=== PATIENT | male | born 2000 | race Caucasian/White ===

== ENCOUNTER → 2023-08-28 09:15 | Outpatient (REF) | payer BC, SELFPAY | LOC: WOUND 09:15 | PROVIDERS: ATTENDING PHYSICIAN Surgery; REFERRING PHYSICIAN Student in an Organized Health Care Education/Training Program | DX: S91.001A Unspecified open wound, right ankle, initial encounter (principal); V86.99XA Unspecified occupant of other special all-terrain or other off-road motor vehicle injured in nontraffic accident, initial encounter | CPT/HCPCS: 11042 ==

== ENCOUNTER → 2023-09-04 09:29 | Outpatient (REF) | payer BC, SELFPAY | LOC: WOUND 09:29 | PROVIDERS: ATTENDING PHYSICIAN Surgery; REFERRING PHYSICIAN Student in an Organized Health Care Education/Training Program | DX: S91.001A Unspecified open wound, right ankle, initial encounter (principal); V86.99XA Unspecified occupant of other special all-terrain or other off-road motor vehicle injured in nontraffic accident, initial encounter | CPT/HCPCS: 97597 ==

== ENCOUNTER → 2023-09-11 09:11 | Outpatient (REF) | payer BC, SELFPAY | LOC: WOUND 09:11 | PROVIDERS: ATTENDING PHYSICIAN Surgery; REFERRING PHYSICIAN Student in an Organized Health Care Education/Training Program | DX: S91.001A Unspecified open wound, right ankle, initial encounter (principal); X58.XXXA Exposure to other specified factors, initial encounter | CPT/HCPCS: 97597 ==

== ENCOUNTER → 2023-09-18 09:38 | Outpatient (REF) | payer BC, SELFPAY | LOC: WOUND 09:38 | PROVIDERS: ATTENDING PHYSICIAN Surgery; FAMILY PHYSICIAN Student in an Organized Health Care Education/Training Program | DX: S91.001A Unspecified open wound, right ankle, initial encounter (principal); V89.0XXA Person injured in unspecified motor-vehicle accident, nontraffic, initial encounter | CPT/HCPCS: 97597 ==

== ENCOUNTER → 2023-09-25 09:55 | Outpatient (REF) | payer BC, SELFPAY | LOC: WOUND 09:55 | PROVIDERS: ATTENDING PHYSICIAN Surgery; FAMILY PHYSICIAN Student in an Organized Health Care Education/Training Program | DX: S91.001A Unspecified open wound, right ankle, initial encounter (principal); X58.XXXA Exposure to other specified factors, initial encounter | CPT/HCPCS: 97597 ==

== ENCOUNTER 2024-11-08 22:38 | Inpatient (IN) | payer BC, SELFPAY ==
[2024-11-08] VITALS (8 sets, daily range): BP systolic 120–134; BP diastolic 58–86; BMI 31.2
[2024-11-08 16:59] LABS: Urine Albumin 2+ (Neg - Trace); Urine Bilirubin 3+ (Negative); Urine Character Clear (Clear); Urine Color Yellow; Urine Glucose Negative (Negative); Urine Ketone 1+ (Negative); Urine Leukocyte 1+ (Negative); Urine Nitrite Negative (Negative); Urine Occult Blood 2+ (Negative); Urine Specific Gravity 1.015 (<1.030); Urine Urobilinogen 2+ (Neg - 1+)
[2024-11-08 17:11] LABS: Albumin 4.5 g/dl (3.5-5.0); Alkaline Phosphatase 158 U/L (38-126); Blood Urea Nitrogen 9 mg/dl (9-20); Calcium 9.6 mg/dl (8.4-10.2); Carbon Dioxide 28 mmol/L (22-30); Chloride 103 mmol/L (98-107); Glucose 99 mg/dl (70-99); Potassium 4.9 mmol/L (3.5-5.1); Sodium 141 mmol/L (135-145); Total Bilirubin 8.9 mg/dl (0.2-1.3); Total Protein 7.7 g/dl (6.3-8.2); eGFR > 60.00
[2024-11-08 17:26] LABS: Urine Bacteria Moderate (Negative); Urine Mucus Moderate; Urine Red Blood Cell 0-2 /HPF (0-2)
[2024-11-08 17:28] LABS: AST (SGOT) 5658 U/L (17-59); Hematocrit 49.9 % (39.0-52.0); Hemoglobin 17.4 g/dL (13.0-18.0); Mean Corp Hgb Conc. 34.9 g/dL (33.0-37.0); Mean Corpuscular Hgb 30.6 pg (27.0-31.0); Mean Corpuscular Volume 87.7 fL (80.0-94.0); Mean Platelet Volume 10.1 fL (7.4-10.4); Platelet Count 181 10^3/uL (130-400); Red Blood Cell Count 5.69 10^6/uL (4.70-6.10); Red Cell Dist. Width 13.2 % (11.5-14.5)
[2024-11-08 17:29] LABS: ALT (SGPT) 6275 U/L (0-50)
[2024-11-08 17:49] LABS: Lipase 31 U/L (23-300)
[2024-11-08] MEDS: NSS 1000 IV ×2 (17:56→23:32)
[2024-11-08 18:18] LABS: INR 1.64; PT 19.6 Sec (11.4-14.6)
--- NOTE | 2024-11-08 18:27 | ED.GENMED ---
History of Present Illness
General
Chief Complaint: Abdominal Pain
Source: patient
Exam Limitations: none
Time Seen by Provider: 11/08/24 17:38
History of Present Illness
History of Present Illness:
24yoM with no significant past medical history for evaluation of abdominal pain. Patient initially started feeling unwell 3 days ago. He reports pressure, fatigue, malaise, and chills. He has been feeling feverish but has not been checking his
temperature. He developed pain in his epigastrium and right upper quadrant 2 days ago. Pain has been gradually worsening and is worse with movement and eating. His urine has appeared very dark. He was seen at urgent care prior to arrival and
urinalysis showed a large amount of bilirubin and he was sent to the ED for evaluation. No previous abdominal surgeries. He denies any drug use and drinks alcohol socially. No supplement use. He had 3 to 4 tablets of Tylenol 2 days ago but
otherwise denies taking anything [id number]. Of note, he traveled to [place] last month.
Past History
Past History
ED Past Medical History: None
ED Past Surgical History: None
Phy Exam
General Physical Exam
General Presentation: no apparent distress
General Skin: warm and dry
General Habitus: normal
General Mental: alert
ENT Exam
ENT Exam: normocephalic
Eye Exam
Eye Exam: other (Scleral icterus)
Cardiovascular Exam
Cardiovascular Exam: regular rate/rhythm
Pulmonary Exam
Pulmonary Exam: lungs clear, no respiratory distress, no rales, no crackles and no rhonchi
Gastrointestinal Exam
Gastrointestinal Exam: soft, non distended and other (+RUQ and epigastric tenderness. Abdomen soft, non-distended. No rebound or guarding.)
Neurological Exam
Neurological Exam: alert
Ronnie Coma Scale
Eye Opening: Spontaneous
Verbal Response: Oriented
Motor Response: Obeys Commands
GCS Total Score: 15
Skin Exam
Skin Exam: normal color and warm/dry
Psychiatric Exam
Psychiatric Exam: normal mood/affect
Course
Orders/Labs/Results
Orders:
Orders
11/08/24 16:49
Acetaminophen Urgent
Comment: ADD ON
Complete Blood Count/With Diff Urgent
Comprehensive Metabolic Panel Urgent
Creatine Phosphokinase Urgent
Lipase Urgent
Manual Differential Urgent
Urinalysis Reflex To Culture Urgent
Date Specimen was Collected: 11/08/24
Time Specimen was Collected: 16:44
Urine Drug Abuse Screen Urgent
Date Specimen was Collected: 11/08/24
Time Specimen was Collected: 16:44
Urine Microscopic Reflex Cult Urgent
Urine Culture Urgent
SUNIL Source: U
Specimen Description:
Date Specimen was Collected: 11/08/24
Time Specimen was Collected: 16:44
11/08/24 17:48
0.9% Sodium Chloride 1000 ml [Nss] 1,000 ml IV BOLUS
11/08/24 17:50
US Abdomen Complete/Upper Urgent
Comment:
Reason For Exam: RUQ pain, transaminitis
11/08/24 17:53
Hepatitis A IgM Antibody Urgent
Hepatitis B Core Ab, IgM Urgent
Hepatitis B Surface Antibody Urgent
Hepatitis B Surface Antigen Urgent
Hepatitis C Antibody Urgent
Prothrombin Time Urgent
11/08/24 19:08
Add On- LAB Urgent
Tests Added?: CK
CT Abd/pelvis W Iv Cont Stat
Comment:
Reason For Exam: RUQ pain, transaminitis
11/08/24 19:55
Add On- LAB Urgent
Tests Added?: acetaminophen
11/08/24 19:58
Add On- LAB Urgent
Tests Added?: Urine drug screen
11/08/24 20:24
Piperacillin/Tazo 4.5 Gram [Zosyn] 4.5 gram in 100 ml IV NOW
11/08/24 22:01
Admit/Transfer Patient As Directed
Co-Sign Provider:
Level of Care: Inpatient admission
Assign to:: Medical/Surgical
Physician / Group: cameron josue
Diagnosis: Acute Hepatitis A infection w/ transaminitis
Reason for Hospitalization: Acute Hepatitis A infection w/ transaminitis
Expected length of stay greater than two midnights?: Yes
ELOS- Estimated Length of Stay in days: 4
I certify the patient meets the requirements for IP care: Yes
11/08/24 22:05
Code Status As Directed
Resuscitation Status: Full Code
11/08/24 22:07
PRN Pain Medication Management As Directed
May give lesser potent ordered pain med per pt: Yes
preference::
Protocol:: Medication orders for pain may be administered in a
manner that supports deferring to patient preference
when the pt is:
- Requesting an ordered lesser potent pain medication.
Least to most potent pain medications are defined
as: acetaminophen < NSAID < tramadol < opioids
(morphine, oxycodone, hydromorphone).
- Requesting a lesser dose of the same medication IF
ORDERED.
- Requesting a less intrusive route of administration
if both routes are prescribed by the provider (PO <
IV).
11/08/24 22:08
GASTROINTESTINAL CONSULT Routine
Consulting Provider: Lupe Mendez
Was physician already notified: Yes
Reason for consult: acute hep A infection
Abnormal Lab Results
11/08/24 11/08/24
16:49 17:53
Lymphocytes (Manual) 19 L %
(20-51)
Monocytes (Manual) 11 H %
(2-9)
PT 19.6 H Sec
(11.4-14.6)
Total Bilirubin 8.9 H mg/dl
(0.2-1.3)
AST 5658 H* U/L
(17-59)
ALT 6275 H* U/L
(0-50)
Alkaline Phosphatase 158 H U/L
(38-126)
Creatine Kinase 179 H U/L
(55-170)
Urine Ketones 1+ A
(Negative)
Ur Occult Blood Reflex 2+ A
(Negative)
Urine Bilirubin 3+ A
(Negative)
Urine Urobilinogen 2+ A
(Neg - 1+)
Leukocyte Esterase Rfl 1+ A
(Negative)
Urine Bacteria (Reflex) Moderate A
(Negative)
Urine Albumin (Reflex) 2+ A
(Neg - Trace)
Acetaminophen < 10 L ug/ml
(10-30)
U Marijuana (THC) Screen Positive H
(Negative)
11/08/24 16:49
11/08/24 16:49
Vital Signs
Initial and Last Documented VS:
Initial Vital Signs
Temp Pulse Resp BP Pulse Ox
97.7 F 71 20 131/86 100
11/08/24 16:37 11/08/24 16:37 11/08/24 16:37 11/08/24 16:37 11/08/24 16:37
Last Documented Vital Signs
Temp Pulse Resp BP Pulse Ox
97.7 F 59 18 133/65 97
11/08/24 16:37 11/08/24 20:08 11/08/24 20:08 11/08/24 20:00 11/08/24 20:30
MDM/Problems Addressed
Differential Diagnosis Includes:
24yoM here with malaise, feeling feverish, RUQ pain, and dark urine x 2-3 days. [place] here by urgent care for bilirubin seen on UA. VSS. He appears fatigued but is non-toxic. Scleral icterus noted. +Abdominal tenderness without signs of peritonitis.
Differential diagnosis includes but is not limited to: cholecystitis, pancreatitis, viral illness, appendicitis, dehydration
Initial ED plan: Abdominal labs obtained in triage. LFTs are markedly elevated with AST 5600, ALT 6200, and total bilirubin of 8.9. White count and lipase normal. Will check INR, hepatitis panel, and RUQ ultrasound. IV fluid bolus.
*Critical Care Note
Total Time (30-74mins, 75-104mins- exclusive of procedures): Not Applicable
Update Note
Update Note:
INR 1.6. Hepatitis A IgM antibody is reactive. RUQ ultrasound shows gallbladder debris without cholecystitis or cholelithiasis. CT added which reveals 'Abnormal appearance of the gallbladder with appearance of intraluminal/sloughed membranes.
Findings are suspicious for gangrenous cholecystitis in the appropriate clinical context.' I discussed case with general surgery who states this is likely reactive due to liver inflammation. IV Zosyn ordered for completeness. I also discussed with
gastroenterology who recommends supportive care, checking Tylenol level/UDS, and repeat labs in the morning. Patient admitted for further management.
ED Attending Note
-
Portions of this chart may have been created with voice recognition software.� Occasional wrong word or��sound alike� substitutions may have occurred due to the inherent limitations of voice recognition software.
Discharge Plan
Departure
Patient Disposition: Admit
Date of Disposition: 11/08/24
Time of Disposition: 20:08
Presentation/result/management discussed w/ accepting MD/DO: Hospitalist
Discharge Problem:
Acute hepatitis A virus infection
Prescriptions:
No Action
fluticasone propionate [Flonase] 50 mcg/actuation [place],Suspension
2 spray INTRANASAL DAILY
Referrals:
NONE,* [Family Provider] -
Interventions
Interventions:
*Risk Screen - Suicide Last Done: 11/08/24 16:37
*General Assessment Last Done: 11/08/24 17:40
*Neglect/Abuse Screening Last Done: 11/08/24 17:40
*ED- Fall Risk Assessment Last Done: 11/08/24 17:40
*ED COVID-19 Vaccine History Last Done: 11/08/24 17:40
LT-Fpcgfl-Saosdnsvkw Assessment Last Done: 11/08/24 19:19
Discharge Date and Time
Print Language: MALTESE
[2024-11-08 18:54] LABS: Hepatitis B Surface Antigen Negative (Negative)
[2024-11-08 18:59] LABS: Hepatitis A IgM Antibody Reactive (Negative); Hepatitis B Core Ab, IgM Negative (Negative)
[2024-11-08 19:02] LABS: Absolute Neutrophils -Man Diff 3.5 10^3/uL (1.4-6.5); Atypical Lymphocytes 11 %; Band Neutrophils 0 % (0-3); Lymphocytes 19 % (20-51); Monocytes 11 % (2-9); Platelets Checked Yes; Segmented Neutrophils 59 % (42-75)
[2024-11-08 19:03] LABS: Normal RBC Morphology Yes; Total Cells Counted 100
[2024-11-08 19:11] LABS: Hepatitis B Surface Antibody Negative; Hepatitis C Antibody Negative (Negative)
[2024-11-08 20:06] LABS: Acetaminophen < 10 ug/ml (10-30); Creatine Phosphokinase 179 U/L (55-170)
[2024-11-08 20:34] LABS: Amphetamines Negative (Negative); Barbiturates Negative (Negative); Benzodiazepines Negative (Negative); Buprenorphine Negative (Negative); Cocaine Negative (Negative); Marijuana Positive (Negative); Methadone Negative (Negative); Methamphetamines Negative (Negative); Opiates Negative (Negative); Phencyclidine Negative (Negative); Tricyclic Antidepressants Negative (Negative)
[2024-11-08] MEDS: ZOSYN 100 IV (20:35)
--- NOTE | 2024-11-08 21:05 | HPS.HSE ---
Addendum entered and electronically signed by Mariana Shrestha DO 11/09/24 02:53:
I have seen and examined the patient. I reviewed the patient with Vee, and agree with her history and physical, assessment and plan of care as per below. The patient is an otherwise healthy 24 yo gentleman who presents with abdominal pain, n/v as
per below, associated with malaise, fatigue. He had recent travel to [place] where he ate a significant amount of seafood. Otherwise no known sick contacts.
CT findings: Abnormal appearance of the gallbladder with appearance of intraluminal/sloughed membranes. Findings are suspicious for gangrenous cholecystitis in the appropriate
Labs remarkable for:AST 5658, ALT 60-75, alk phos 158, T. bili 8.9, INR 1.64, PLT 189 INR 1.64
Hepatitis panel positive for Hepatitis A IgM Ab positive, concerning for acute Hepatitis A infection
VSS, AF
PE exam remarkable for abdominal tenderness to palpation of upper mid and right quadrant, no peritoneal signs
# Abdominal pain, transaminitis, and findings on CT of intraluminal/sloughed membranes, likely related to liver inflammation from Acute Hep A infection, as discussed with GI & Surgery
-continue NPO, IVF, supportive care
-repeat labs in am
-GI/Surgery consultation are appreciated
further assessment and plan of care as per below
If worsening liver failure would contact tertiary center for transfer to transplant center.
Original Note:
Family Physician
-
Family Physician: * NONE
Chief Complaint
-
Right upper quadrant abdominal pain, fatigue, malaise, chills
History of Present Illness
24-year-old male complaining of abdominal pain that started feeling unwell 3 days ago he reports abdominal pain midepigastric with pressure, fatigue malaise and chills he has been feeling feverish but no documented temperatures .He reports the pain
is in his epigastrium and right upper quadrant that started 2 days ago it is worse with movement and eating he also states his urine is very dark. He reports he was out of the country 1 month ago at [place] eating lots of seafood he also has
lots of solid works food which he did have on 2 days before feeling sick. He was seen at urgent care prior to arrival with urinalysis showing large amount of bilirubin he was sent to the ER for evaluation. He has had no prior abdominal
surgeries he reports he has taken 3 to 4 tablets of Tylenol 2 days ago but otherwise denies taking any medication [id number]. He does not drink or use any drugs. On my exam the patient was finishing an [employer] with a cup of chicken
noodle soup. He was tender in the midepigastric to right upper quadrant area. He was told by the nurse he was able to eat.He has history of seasonal allergies for which he uses Flonase nasal spray.
Medical History
Past Medical History
Past Medical History: Reports Other
Additional Past Medical History:
Seasonal allergies
Marijuana use
Past Surgical History: Reports Other
Additional Past Surgical History:
Left labrum tear repair
[place] teeth extraction
Social History
Tobacco: Smoker (Marijuana)
Drug: Marijuana
Personal: Single
Living: With Family
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
Family History
Family History: Other (Father history hypertension, DM2, mother healthy)
Allergies / Home Medications
Allergies reflects when Allergies were last updated in [facility].
Home Medications with original date entered in [facility]
Allergy/Medication List:
Allergies
Allergy/AdvReac Type Severity Reaction Status Date / Time
pollen extracts Allergy nasal Verified 11/08/24 16:37
symptoms
Home Medications
fluticasone propionate 50 mcg/actuation nasal spray,suspension 2 spray intranasal DAILY 11/08/24
Review of Systems
-
History Source: Patient and Family (Mother at bedside and stepfather)
A 12 point ROS was completed and negative except as noted: Yes
Constitutional: Reports Fatigue; Denies Fever or Chills
EENT: Denies Sore Throat, Mouth Swelling or Runny Nose
Respiratory: Denies Cough or Trouble Breathing
Cardiac: Denies Chest Pain, Diaphoresis or Palpitations
Abdomen/GI: Reports Abdominal Pain (Midepigastric to right upper quadrant) and Nausea; Denies Vomiting, Diarrhea, Constipated, Bloody Stools or Black Stools
: Denies Dysuria, Frequency, Flank Pain, Incontinence, Difficulty Voiding, Urgency or Bleeding
Musculoskeletal: Denies Joint Pain or Edema
Skin: Denies Itching or Rash
Neurological: Denies Dizzy or Headache
Endocrine: Reports No Symptoms
Hematologic/Lymphatic: Reports No Symptoms
Psych: Reports Calm
Physical Exam
Vital Signs
Vital Signs
Temp Pulse Resp BP Pulse Ox
97.7 F 59 18 133/65 97
11/08/24 16:37 11/08/24 20:08 11/08/24 20:08 11/08/24 20:00 11/08/24 20:30
Physical Exam
General: Comfortable and Conversant; No Fever or Chills
HEENT: NormoCephalic, Moist mucous membranes, PERRLA, [place] Conjunctivae, No Ptosis and Other (Subtle scleral icterus)
Respiratory: Clear; No Wheezes, Rales, Rhonchi or Crackles
Cardiac: S1/S2 and Regular Rhythm; No Murmur, Rub, Gallop or Peripheral Edema
GI: Soft, Non Distended, Normal Bowel Sounds, Tender (Midepigastric to right upper quadrant) and No Hepatosplenomegaly
Genito-urinary: Deferred by me
Musculoskeletal: No Clubbing, No Cyanosis and No Edema
Skin: Warm and Dry; No Rash
Neuro: AO x 3, No Motor Deficits, Nonfocal/grossly intact, Cranial Nerves Intact and No Sensory Deficits; No Slurred Speech, Facial Droop, Tremors or Sedated
Psych: Calm
Laboratory Results
-
11/08/24 16:49
11/08/24 16:49
Laboratory Results
PT 19.6 Sec (11.4-14.6) H 11/08/24 17:53
INR 1.64 11/08/24 17:53
Total Bilirubin 8.9 mg/dl (0.2-1.3) H 11/08/24 16:49
AST 5658 U/L (17-59) H* 11/08/24 16:49
ALT 6275 U/L (0-50) H* 11/08/24 16:49
Alkaline Phosphatase 158 U/L (38-126) H 11/08/24 16:49
Lipase 31 U/L (23-300) 11/08/24 16:49
Data Reviewed
-
CT Scan: Report Reviewed by me
Lab Data: Labs Reviewed by me
Impression/Plan
-
Impression/plan:
Admit to [facility]
#Abdominal pain/acute transaminitis with concern for ACUTE hepatitis A vs low suspicion gangrenous cholecystitis
AST 5658, ALT 60-75, alk phos 158, T. bili 8.9, INR 1.64, PLT 189
Afebrile 97.7, 133/65, HR 59
Patient ate half an [employer] and cup of chicken noodle soup from while while at 21:30 PM on 11/08/2024he was made aware not to eat but states he was given permission by a nurse
- Consult surgery believes it is reactive from liver inflammation
-N.p.o.
-IV NSS 150 cc/hr
- Will give IV Zosyn per surgery
-HOLD Tylenol
- CBC, CMP, INR in a.m.
- If worsening liver failure would contact tertiary center for transfer to transplant center
CT abdomen pelvis with IV contrast:1. Abnormal appearance of the gallbladder with appearance of intraluminal/sloughed membranes. Findings are suspicious for gangrenous cholecystitis in the appropriate
clinical context.
2. Normal appendix.
3. Mild splenomegaly.
Ultrasound abdomen complete:
1. Complex debris-filled gallbladder. Underlying mass not excluded. Consider outpatient MRI or short-term repeat ultrasound for further evaluation.
2. No overt sonographic evidence for cholelithiasis or acute cholecystitis.
#UDS positive marijuana
#Seasonal allergies
May use nasal spray Flonase
DVT prophylaxis
SCDs
Full code
[2024-11-09] MEDS: ZOSYN 50 IV ×2 (01:58→09:30)
[2024-11-09] MEDS: NSS 1000 IV (05:58)
[2024-11-09 06:04] VITALS: BP 128/65
[2024-11-09 06:27] LABS: INR 1.76; PT 20.7 Sec (11.4-14.6)
[2024-11-09 06:43] LABS: Hematocrit 39.3 % (39.0-52.0); Hemoglobin 13.9 g/dL (13.0-18.0); Mean Corp Hgb Conc. 35.4 g/dL (33.0-37.0); Mean Corpuscular Hgb 30.8 pg (27.0-31.0); Mean Corpuscular Volume 87.1 fL (80.0-94.0); Mean Platelet Volume 10.2 fL (7.4-10.4); Platelet Count 158 10^3/uL (130-400); Red Blood Cell Count 4.51 10^6/uL (4.70-6.10); Red Cell Dist. Width 13.1 % (11.5-14.5); White Blood Cell Count 5.7 10^3/uL (4.8-10.8)
[2024-11-09 06:52] LABS: Albumin 2.8 g/dl (3.5-5.0); Alkaline Phosphatase 104 U/L (38-126); Blood Urea Nitrogen 9 mg/dl (9-20); Calcium 8.3 mg/dl (8.4-10.2); Carbon Dioxide 25 mmol/L (22-30); Chloride 111 mmol/L (98-107); Estimated Creatinine Clearance > 125 ml/min; Glucose 89 mg/dl (70-99); Potassium 4.2 mmol/L (3.5-5.1); Sodium 140 mmol/L (135-145); Total Bilirubin 7.6 mg/dl (0.2-1.3); Total Protein 5.4 g/dl (6.3-8.2); eGFR > 60.00
[2024-11-09 07:24] LABS: ALT (SGPT) 4580 U/L (0-50); AST (SGOT) 3798 U/L (17-59)
[2024-11-09 07:52] LABS: % Basophils 0.7 % (0-2); % Eosinophils 0.9 % (0-6); % Immature Granulocytes 0.2 % (0-0.5); % Lymphocytes 34.3 % (20.5-51.1); % Monocytes 13.9 % (1.7-9.3); Absolute Eosinophils 0.1 10^3/uL (0-0.7); Absolute Monocytes 0.8 10^3/uL (0.1-0.6); Absolute Neutrophils 2.8 10^3/uL (1.4-6.5); Nucleated Red Blood Cells % 0 % (-)
--- NOTE | 2024-11-09 07:55 | CON.GI ---
Consultation
-
Date/Time Consultation Requested: 11/08/24
Date/Time Consultation Performed: 11/09/24
Requesting Provider: ED
Performing Provider: Dr. Mendez
Reason for Consultation: abnormal liver chemistries
Medical History
Chief Complaint / HPI
Chief Complaint: acute Hep A
History of Present Illness:
Velasquez is a healthy 24yoM here with acute onset chills, nausea, vomiting, upper abdominal pain admitted with significant hepatocellular injury, no leukocytosis, fever found to have acute hepatitis A.
On admission total bilirubin 8.9 AST 5658, ALT 6275 with an alkaline phosphatase of 158, lipase 31. This morning some mild improvement with total bilirubin of 7.6, AST 3798, ALT 4580 and alkaline phosphatase normalized at 104. Albumin 2.8. INR on
admission 1.64 and today 1.76. Still no leukocytosis. UDS positive for marijuana, Tylenol level normal. He did take a couple of pills of Tylenol since the illness began but no other supplements and only medication at home is Flonase. He did
travel to [place] last month. He does have a sexual partner. He works in a bank. No prior issues with elevated liver enzymes or family history of liver disease.
Last time he had any nausea or vomiting was yesterday. Pain in the abdomen is persistent but improved.
He denies any confusion. Has noticed fatigue since this started. Had no issues prior to Friday.
On imaging his gallbladder is shrunken and decompressed. The gallbladder wall is thickened. His common bile duct is [address] scan he has mild periportal edema mild splenomegaly at 14.7 cm.
Past Medical History
Past Medical History: None
Past Surgical History: None
Social History
Alcohol: Other (Very rare alcohol)
Drug: Marijuana
Personal: Single
Employment: Employed (Works in a bank)
Family History
Family History: Reviewed & Not Pertinent and Other (Denies any liver disease)
Allergies / Home Medications
Allergy/AdvReac Type Severity Reaction Status Date / Time
pollen extracts Allergy nasal Verified 11/08/24 16:37
symptoms
�Medication �Instructions �Recorded
fluticasone propionate 50 2 spray intranasal DAILY 11/08/24
mcg/actuation nasal
spray,suspension
Review of Systems
-
All other systems: A 12 pt ROS was Negative except as stated above in HPI
Vital Signs
Temp Pulse Resp BP Pulse Ox
97.7 F 71 16 128/65 98
11/08/24 16:37 11/09/24 06:04 11/09/24 06:04 11/09/24 06:04 11/09/24 06:04
Physical Exam
Exam
General: No Apparent Distress and Comfortable
HEENT: Anicteric (Mildly icteric)
Respiratory: Clear
GI: Soft and Non Tender (Mildly tender in epigastric area)
Skin: Warm
Neuro: AO x 3
Psych: Calm and Other (No asterixis on exam)
Results
WBC 5.7 10^3/uL (4.8-10.8) 11/09/24 06:01
Hgb 13.9 g/dL (13.0-18.0) D 11/09/24 06:01
Hct 39.3 % (39.0-52.0) 11/09/24 06:01
MCV 87.1 fL (80.0-94.0) 11/09/24 06:01
Plt Count 158 10^3/uL (130-400) 11/09/24 06:01
Absolute Neuts (auto) 2.8 10^3/uL (1.4-6.5) 11/09/24 06:01
PT 20.7 Sec (11.4-14.6) H 11/09/24 06:01
INR 1.76 11/09/24 06:01
APTT 40.0 Sec (23.4-35.0) H 11/09/24 06:01
Sodium 140 mmol/L (135-145) 11/09/24 06:01
Potassium 4.2 mmol/L (3.5-5.1) 11/09/24 06:01
Chloride 111 mmol/L (98-107) H 11/09/24 06:01
Carbon Dioxide 25 mmol/L (22-30) 11/09/24 06:01
BUN 9 mg/dl (9-20) 11/09/24 06:01
Creatinine 0.8 mg/dL (0.7-1.3) 11/09/24 06:01
Calcium 8.3 mg/dl (8.4-10.2) L 11/09/24 06:01
Total Bilirubin 7.6 mg/dl (0.2-1.3) H 11/09/24 06:01
AST 3798 U/L (17-59) H* 11/09/24 06:01
ALT 4580 U/L (0-50) H* 11/09/24 06:01
Alkaline Phosphatase 104 U/L (38-126) 11/09/24 06:01
Lipase 31 U/L (23-300) 11/08/24 16:49
Hepatitis A IgM Ab Reactive (Negative) 11/08/24 17:53
Hep Bs Antibody Negative 11/08/24 17:53
Hep B Core IgM Ab Negative (Negative) 11/08/24 17:53
Hepatitis C Antibody Negative (Negative) 11/08/24 17:53
Diagnostic Image Results:
11/08/2024 ultrasound complex debris-filled gallbladder no overt for cholelithiasis or acute cholecystitis on ultrasound
11/08/24 CT scan abdomen pelvis: abnormal appearance of the gallbladder with intraluminal/sloughed membranes suspicious for gangrenous cholecystitis in the appropriate context, mild periportal edema likely reactive with mild splenomegaly. Otherwise
the liver appears normal. Gallbladder demonstrates diffuse slightly irregular wall thickening/mucosal edema measuring up to 1.6 cm in thickness. No enlarged lymph nodes.
GI Procedures: none
Assessment / Plan
-
Velasquez is a 24-year-old male who recently travel to [place] 1 month ago who believes he was vaccinated as a child for hepatitis A but is unsure who comes in with acute onset fatigue, chills, epigastric pain nausea and vomiting found to have acute
hepatitis A and abnormal gallbladder on imaging with severe hepatocellular injury with a mildly elevated INR with no encephalopathy
# hepatitis A IgM+
--Acute hepatitis A is a self-limited illness and is extremely rare to develop fulminant hepatic failure. The incubation period for hepatitis A is about 20 days and he travel to [place] last month.
-- Treatment is supportive care and avoid any medications that might cause liver damage or are metabolized by the liver like Tylenol or statins
-- Jaundice typically peaks within 2 weeks, typical for ALT over thousand and serum bilirubin typically less than 10 with an alkaline phosphatase up to 400
-- He is considered contagious during the incubation period and will remain so for about a week after the jaundice appears in his shed in stool for at least a week after clinical onset. Full recovery is usually 2 to 3 months and complete recovery 6
months
-- He has no encephalopathy. INR is concerning at 1.7
-- He does not have concomitant hepatitis B or C
-- I doubt malnutrition since his symptoms started on Friday but I will give him some oral vitamin K to see if the INR reverses
-- There may be an indication for protection against hepatitis A following an exposure to this patient if he has any close household or sexual contacts.
-- All his close contacts should get hepatitis A vaccines soon as possible
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
# Abnormal gallbladder with significant gallbladder wall thickening
-- I did discuss with Dr. Pinto from general surgery who believes this is more likely reactive and less likely gallbladder disease
-- Cholecystectomy in the setting of acute hepatitis A would not be ideal and Dr. Pinto stated that a cholecystostomy tube is not necessary since the gallbladder is already decompressed and not dilated -per our conversation with [place] text
-- He is on Zosyn
-- Okay for diet, will need serial INR
-- My only concern is his INR and if it continues to trend up would be concerning for fulminant hepatic failure and he would be transferred to [facility]
Discussed with hepatology at [facility], hospitalist, general surgery and the RN in the ER
Data Reviewed
-
Radiology: Report Reviewed by me and Discussed with Physician
CT Scan: Image Personally Visualized and interpreted and Discussed with Physician
Ultrasound: Image Personally Visualized and interpreted and Discussed with Physician
-
-
Thank you for consultation and allowing me to participate in the patient's care. Please call the [facility] consultant GI physician during the after hours with any questions or concerns.
--- NOTE | 2024-11-09 08:15 | W.PN.HOSP.TC ---
Addendum entered and electronically signed by Mahamed Pemberton MD 11/09/24 13:23:
Elevated total bilirubin
Original Note:
Today's Communication/Plan
-
see plan
Assessment / Plan
Assessment / Plan
Gen: NAD, AAOx3.
Eyes: EOMI, PERRLA, no scleral icterus.
Neck: supple.
CV: RRR, +S1/S2, no m/r/g.
Resp: CTAB, no rales, wheezes, or rhonchi.
Abd: +BS, soft, RUQ TTP, ND
Skin: No rashes.
Neuro: CN 2-12 intact, non-focal.
Psych: Normal mood and affect.
CT A/P:
1. Abnormal appearance of the gallbladder with appearance of intraluminal/sloughed membranes. Findings are suspicious for gangrenous cholecystitis in the appropriate clinical context.
2. Normal appendix.
3. Mild splenomegaly.
Abd U/S:
1. Complex debris-filled gallbladder. Underlying mass not excluded. Consider outpatient MRI or short-term repeat ultrasound for further evaluation.
2. No overt sonographic evidence for cholelithiasis or acute cholecystitis.
Abdominal pain:
-with acute transaminitis likely due to acute hepatitis A infection (HAV IgM POS) vs much less likely gangrenous cholecystitis
-imaging above
-discussed with GI and surgery on admission, discussed with GI this AM
-LFTs improving
-NPO with sips/IVFs
-cont IV Zosyn until seen by surgery
Other problems:
Obesity due to excess calories
Marijuana use
Seasonal allergies
FULL/SCDs
Anticipated Discharge: > 48 hours
Subjective/Interval History
-
Date of Service: November 09, 2024
No new complaints.
Objective Data
-
Labs:
Laboratory Results
11/09/24
06:01
WBC 5.7
Hgb 13.9 D
Hct 39.3
Plt Count 158
PT 20.7 H
INR 1.76
APTT 40.0 H
Sodium 140
Potassium 4.2
Chloride 111 H
Carbon Dioxide 25
BUN 9
Creatinine 0.8
Glucose 89
Calcium 8.3 L
Total Bilirubin 7.6 H
AST 3798 H*
ALT 4580 H*
Alkaline Phosphatase 104
Vital Signs:
Vital Signs
Temp Pulse Resp BP Pulse Ox
97.7 F 71 16 128/65 98
11/08/24 16:37 11/09/24 06:04 11/09/24 06:04 11/09/24 06:04 11/09/24 06:04
[2024-11-09] MEDS: MEPHYTON 10 MG PO (10:37)
[2024-11-09 11:19] LABS: INR 1.64; PT 19.6 Sec (11.4-14.6)
--- NOTE | 2024-11-09 12:06 | PN.CDI ---
CDI
- -
CDI:
Physician Documentation Request
Admit Date: 11/08/24 22:38
Dear Doctor Nilay,
Please review the following and provide your response in the progress notes.
Clinical Indicators:
Laboratory Tests
11/08/24 11/09/24
16:49 06:01
Total Bilirubin 8.9 H 7.6 H
Based on the above and your clinical assessment, please clarify the appropriate diagnosis, if significant, that supports the above abnormalities and additional evaluation, monitoring and/or treatment rendered:
Elevated total bilirubin
Abnormal lab value, clinically insignificant
Other(please specify)
Use of terms such as suspected, likely, concern for, or probable (associated with a specific diagnosis that is being evaluated, monitored, or treated as if it exists) are acceptable and can be coded in the inpatient setting, when documented at the
time of discharge.
Thank you,
Johanne Johnson RN BSN CCDS
CDI Specialist
Please contact via tiger text
Please use your independent medical judgment in providing your response.
[2024-11-09] MEDS: NSS IV (13:03)
[2024-11-09 14:32] VITALS: BP 116/51
[2024-11-09] MEDS: ZOSYN IV (15:30)
--- NOTE | 2024-11-09 15:38 | CON.GS ---
Medical History
-
Chief Complaint: Chills, nausea, vomiting, and upper abdominal pain
History of Present Illness:
Patient is a 24 yo M presenting with acute onset of chills, nausea, vomiting, and upper abdominal pain. Symptoms began this past weekend and progressed since that time. Currently states that his abdominal pain is improved. Last time he had any
nausea or vomiting was yesterday. He does continue to feel somewhat fatigued. He denies any prior attacks or issues with abdominal pain or discomfort. He denies any association with fatty food intake. Denies any pale stools, tea colored urine,
or fluctuations in bowel habits. He does have some notable jaundice. Workup in the ED was notable for significant transaminitis as well as elevated bilirubin. He he has an impact on his synthetic function with a elevated INR. Today's labs has
been improved. UDS was positive for marijuana. Tylenol level normal. He recently traveled to [place] last month. He is sexually active. He was noted to be hepatitis A positive.
Past Medical History
Past Medical History: None
Past Surgical History: None
Social History
Tobacco: Non-Smoker
Alcohol: Occasional
Drug: Marijuana
Personal: Single
Employment: Employed (Recent thank)
Family History
Family History: Reviewed & Noncontributory
Allergies / Home Medications
Allergy/AdvReac Type Severity Reaction Status Date / Time
pollen extracts Allergy nasal Verified 11/08/24 16:37
symptoms
�Medication �Instructions �Recorded �Confirmed �Type
fluticasone propionate 50 2 spray intranasal DAILY 11/08/24 11/08/24 History
mcg/actuation nasal
spray,suspension
Review of Systems
-
A 10 point review of systems was completed, and was negative except as per HPI.
Physical Exam
Vital Signs
Temp Pulse Resp BP Pulse Ox
97.7 F 54 16 116/51 98
11/08/24 16:37 11/09/24 14:37 11/09/24 14:32 11/09/24 14:32 11/09/24 14:32
11/08/24 11/09/24 11/10/24
06:59 06:59 06:59
Actual Weight 104.2 kg
Body Mass Index (BMI) 31.2
Lab Results
11/09/24 06:01
11/09/24 06:01
WBC 5.7 10^3/uL (4.8-10.8) 11/09/24 06:01
Hgb 13.9 g/dL (13.0-18.0) D 11/09/24 06:01
Hct 39.3 % (39.0-52.0) 11/09/24 06:01
Plt Count 158 10^3/uL (130-400) 11/09/24 06:01
Abs Immat Gran (auto) 0.0 10^3/uL (0-0.05) 11/09/24 06:01
Neutrophils % 50.0 % (42.2-75.2) 11/09/24 06:01
Physical Exam
General: Well Developed, Well Nourished and No Apparent Distress
HEENT: Normocephalic and Scleral Icterus
Respiratory: Non Labored Respirations
Cardiac: Regular Rhythm
GI: Soft, Non Tender (Negative Ness's sign), Non Distended and Other (Nonperitoneal)
Skin: Warm and Dry
Neuro: Nonfocal/Grossly Intact
Data Reviewed
-
CT Scan: Image Personally Visualized and interpreted and Report Reviewed by me
Ultrasound: Image Personally Visualized and interpreted and Report Reviewed by me
Labs: Labs Reviewed by me
Assessment / Plan
-
Patient is a 24 yo M p/w acute liver injury secondary to hepatitis A
No prior issues with biliary colic and no current clear clinical history consistent with that of cholecystitis. CT scan imaging does demonstrate a shrunken gallbladder with significant edema surrounding. Ultrasound notable for a negative
sonographic Ness sign as well as some questions of possible biliary sludge but no clear stones and no signs of wall thickening. CT scan findings are likely reactive edema secondary to his current liver issues. Natural history and pathophysiology
of biliary and stone disease was discussed. Classic symptoms were reviewed. No plans or indication for surgical intervention as relates to his gallbladder. Normal WBC and no left shift. No indication for antibiotic treatment from the surgical
perspective at this time. GI consult noted. All further care per the GI service. Please call with any questions or concerns. All questions answered.
-- No plans or indication for intervention as a relates to his gallbladder
-- Please call with any questions or concerns
[2024-11-09 23:00] VITALS: BP 112/52
[2024-11-10 07:30] VITALS: BP 129/63
--- NOTE | 2024-11-10 07:53 | W.PN.HOSP.TC ---
Today's Communication/Plan
-
see plan
Assessment / Plan
Assessment / Plan
Gen: NAD, AAOx3.
Eyes: EOMI, PERRLA, very minimal peripheral scleral icterus.
Neck: supple.
CV: remains RRR, +S1/S2, no m/r/g.
Resp: CTAB, no rales, wheezes, or rhonchi.
Abd: remains +BS, soft, RUQ TTP, ND
Skin: No rashes.
Neuro: CN 2-12 intact, non-focal.
Psych: Normal mood and affect.
CT A/P:
1. Abnormal appearance of the gallbladder with appearance of intraluminal/sloughed membranes. Findings are suspicious for gangrenous cholecystitis in the appropriate clinical context.
2. Normal appendix.
3. Mild splenomegaly.
Abd U/S:
1. Complex debris-filled gallbladder. Underlying mass not excluded. Consider outpatient MRI or short-term repeat ultrasound for further evaluation.
2. No overt sonographic evidence for cholelithiasis or acute cholecystitis.
Abdominal pain:
-with acute transaminitis likely due to acute hepatitis A infection (HAV IgM POS) vs much less likely gangrenous cholecystitis
-Appreciate surgery, no indication for cholecystectomy at this time
-IV Zosyn stopped
-imaging above
-LFTs currently stable, INR trending down, now 1.42
-LR diet
Other problems:
Obesity due to excess calories
Marijuana use
Seasonal allergies
Pt's father updated at bedside.
FULL/SCDs
Anticipated Discharge: 24 - 48 hours
Subjective/Interval History
-
Date of Service: November 10, 2024
No new complaints.
Objective Data
-
Labs:
Laboratory Results
11/10/24
07:35
WBC Pending
Hgb Pending
Hct Pending
Plt Count Pending
PT Pending
INR Pending
Sodium Pending
Potassium Pending
Chloride Pending
Carbon Dioxide Pending
BUN Pending
Creatinine Pending
Glucose Pending
Calcium Pending
Total Bilirubin Pending
AST Pending
ALT Pending
Alkaline Phosphatase Pending
Vital Signs:
Vital Signs
Temp Pulse Resp BP Pulse Ox
98.6 F 52 18 112/52 97
11/09/24 23:00 11/09/24 23:00 11/09/24 23:00 11/09/24 23:00 11/09/24 23:00
I&O
11/09/24 11/10/24 11/11/24
06:59 06:59 06:59
Intake Total 480 / 480
Balance 480 / 480
[2024-11-10 08:08] LABS: Hematocrit 45.1 % (39.0-52.0); Hemoglobin 15.5 g/dL (13.0-18.0); Mean Corp Hgb Conc. 34.4 g/dL (33.0-37.0); Mean Corpuscular Hgb 30.3 pg (27.0-31.0); Mean Corpuscular Volume 88.1 fL (80.0-94.0); Mean Platelet Volume 10.7 fL (7.4-10.4); Platelet Count 185 10^3/uL (130-400); Red Blood Cell Count 5.12 10^6/uL (4.70-6.10); Red Cell Dist. Width 13.3 % (11.5-14.5); White Blood Cell Count 5.9 10^3/uL (4.8-10.8)
[2024-11-10 08:11] LABS: INR 1.46; PT 18.3 Sec (11.4-14.6)
[2024-11-10 09:20] LABS: Albumin 3.3 g/dl (3.5-5.0); Alkaline Phosphatase 137 U/L (38-126); Blood Urea Nitrogen 9 mg/dl (9-20); Calcium 8.9 mg/dl (8.4-10.2); Carbon Dioxide 22 mmol/L (22-30); Chloride 108 mmol/L (98-107); Estimated Creatinine Clearance > 125 ml/min; Glucose 92 mg/dl (70-99); Potassium 4.3 mmol/L (3.5-5.1); Sodium 139 mmol/L (135-145); Total Bilirubin 9.2 mg/dl (0.2-1.3); Total Protein 6.1 g/dl (6.3-8.2); eGFR > 60.00
[2024-11-10 09:43] LABS: % Basophils 0.7 % (0-2); % Eosinophils 0.9 % (0-6); % Immature Granulocytes 0.3 % (0-0.5); % Lymphocytes 29.2 % (20.5-51.1); % Monocytes 13.5 % (1.7-9.3); % Neutrophils 55.4 % (42.2-75.2); Absolute Eosinophils 0.1 10^3/uL (0-0.7); Absolute Lymphocytes 1.7 10^3/uL (1.2-3.4); Absolute Monocytes 0.8 10^3/uL (0.1-0.6); Absolute Neutrophils 3.2 10^3/uL (1.4-6.5); Nucleated Red Blood Cells % 0 % (-)
[2024-11-10 09:57] LABS: ALT (SGPT) 4763 U/L (0-50); AST (SGOT) 3961 U/L (17-59)
[2024-11-10 15:31] VITALS: BP 113/46
--- NOTE | 2024-11-10 15:49 | CM ---
Alert awake oriented patient who lives with his parents Rashid Desouza in a 2 story home with 1 step to enter and 10 steps to bed and bathroom. He is independent in driving and in all activities of daily living.He was offered VN he declined need.
No VN hx / No SNF history
Pharmacy [facility]
PCP Non given [facility] [phone] info
PLAN Home Declined VN
--- NOTE | 2024-11-10 17:17 | W.PN.GI.CBS2 ---
Addendum entered and electronically signed by Lupe Mendez DO 11/10/24 18:39:
Patient seen and examined independently of DEVAUGHN. I agree with her note with my additions below:
Velasquez is feeling better with less pain today and tolerating a regular diet.
Review of labs show slightly improved INR, improve AST/ALT from first draw, not much change from yesterday. No fever, no leukocytosis
I did discuss with hepatology at [facility] [place] who would prefer to see 2 days of consecutive improvements in his LFTs and INR and therefore we will check blood work in the morning and if improving okay for discharge. Upon discharge needs blood work twice
weekly for 2 weeks then weekly until further notice
With the splenomegaly no contact sports for 6 weeks
All sexual contact should be immunized
Will need to make sure the health department was contacted since this is a reportable infectious disease
Original Note:
Today's Communication / Plan
-
feeling better less pain
trial regular diet
INR improving
bili higher AST/ALT lower
cont supportive care
discussed precautions with mild Splenomegaly would avoid contact sports at least 6 weeks til improved
repeat labs in AM
Assessment / Plan
-
Velasquez is a 24-year-old male who recently travel to [place] 1 month ago who believes he was vaccinated as a child for hepatitis A but is unsure who comes in with acute onset fatigue, chills, epigastric pain nausea and vomiting found to have acute
hepatitis A and abnormal gallbladder on imaging with severe hepatocellular injury with a mildly elevated INR with no encephalopathy.
Laboratory Tests
11/08/24 11/09/24 11/09/24
16:49 06:01 10:54
Plt Count 181 158
PT
INR 1.76 1.64
Total Bilirubin 8.9 H 7.6 H
AST 5658 H* 3798 H*
ALT 6275 H* 4580 H*
Alkaline Phosphatase 158 H 104
Albumin 4.5 2.8 L D
11/10/24
07:35
Plt Count 185
PT 18.3 H
INR 1.46
Total Bilirubin 9.2 H
AST 3961 H*
ALT 4763 H*
Alkaline Phosphatase 137 H
Albumin 3.3 L
# hepatitis A IgM+
--Acute hepatitis A is a self-limited illness and is extremely rare to develop fulminant hepatic failure. The incubation period for hepatitis A is about 20 days and he travel to [place] last month.
-- Treatment is supportive care and avoid any medications that might cause liver damage or are metabolized by the liver like Tylenol or statins
-- Jaundice typically peaks within 2 weeks, typical for ALT over thousand and serum bilirubin typically less than 10 with an alkaline phosphatase up to 400
-- He is considered contagious during the incubation period and will remain so for about a week after the jaundice appears in his shed in stool for at least a week after clinical onset. Full recovery is usually 2 to 3 months and complete recovery 6
months
--pt feeling better less pain ok for regular diet
-- He has no encephalopathy. INR now improving to 1.46
--bili higher and AST/ALT lower
-- He does not have concomitant hepatitis B or C
-- I doubt malnutrition since his symptoms started on Friday but I will give him some oral vitamin K to see if the INR reverses
-- There may be an indication for protection against hepatitis A following an exposure to this patient if he has any close household or sexual contacts.
-- All his close contacts should get hepatitis A vaccines soon as possible
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
# Abnormal gallbladder with significant gallbladder wall thickening
---s/p surgical eval
-- Dr. Mendez did discuss with Dr. Pinto from general surgery who believes this is more likely reactive and less likely gallbladder disease
-- Cholecystectomy in the setting of acute hepatitis A would not be ideal and Dr. Pinto stated that a cholecystostomy tube is not necessary since the gallbladder is already decompressed and not dilated -per our conversation with [place] text
now off abx
# mild Splenomegaly
---discussed no contact sports for 6 weeks with patient has does play football and basketball, light exercise with good hydration
# coagulopathy
--- improving
11/09 Dr. Mendez Discussed with hepatology at [place], hospitalist, general surgery
Subjective
Subjective
Date of Service: November 10, 2024
low residue diet, no stools feeling better less pain
Objective
Data Reviewed
Laboratory Data:
Laboratory Results
11/10/24 07:35
11/10/24 07:35
Laboratory Results
PT 18.3 Sec (11.4-14.6) H 11/10/24 07:35
INR 1.46 11/10/24 07:35
APTT 40.0 Sec (23.4-35.0) H 11/09/24 06:01
Total Bilirubin 9.2 mg/dl (0.2-1.3) H 11/10/24 07:35
AST 3961 U/L (17-59) H* 11/10/24 07:35
ALT 4763 U/L (0-50) H* 11/10/24 07:35
Alkaline Phosphatase 137 U/L (38-126) H 11/10/24 07:35
Lipase 31 U/L (23-300) 11/08/24 16:49
Vital Signs and I&O:
Vital Signs
Temp Pulse Resp BP Pulse Ox
98.7 F 46 14 113/46 98
11/10/24 15:31 11/10/24 15:31 11/10/24 15:31 11/10/24 15:31 11/10/24 15:31
I&O
11/09/24 11/10/24 11/11/24
06:59 06:59 06:59
Intake Total 480 / 480 960 / 960
Balance 480 / 480 960 / 960
Physical Exam
Physical Exam
HEENT: Other (jaundice )
Cardiology: Other (bradicardia)
Pulmonary: Clear
GI: Soft, Non Distended and Tender (epigastric )
Extremities: No Edema
Neuro: Non Focal
[2024-11-10 23:18] VITALS: BP 119/69
[2024-11-11 07:00] VITALS: BP 121/58
[2024-11-11 07:49] LABS: INR 1.34; PT 17.1 Sec (11.4-14.6)
[2024-11-11 07:55] LABS: Hematocrit 44.8 % (39.0-52.0); Hemoglobin 15.3 g/dL (13.0-18.0); Mean Corp Hgb Conc. 34.2 g/dL (33.0-37.0); Mean Corpuscular Hgb 30.2 pg (27.0-31.0); Mean Corpuscular Volume 88.4 fL (80.0-94.0); Mean Platelet Volume 10.8 fL (7.4-10.4); Platelet Count 176 10^3/uL (130-400); Red Blood Cell Count 5.07 10^6/uL (4.70-6.10); Red Cell Dist. Width 13.7 % (11.5-14.5); White Blood Cell Count 5.6 10^3/uL (4.8-10.8)
[2024-11-11 08:13] LABS: Albumin 2.9 g/dl (3.5-5.0); Alkaline Phosphatase 133 U/L (38-126); Blood Urea Nitrogen 9 mg/dl (9-20); Carbon Dioxide 28 mmol/L (22-30); Chloride 106 mmol/L (98-107); Estimated Creatinine Clearance > 125 ml/min; Glucose 88 mg/dl (70-99); Potassium 4.2 mmol/L (3.5-5.1); Sodium 137 mmol/L (135-145); Total Bilirubin 10.7 mg/dl (0.2-1.3); Total Protein 5.9 g/dl (6.3-8.2); eGFR > 60.00
--- NOTE | 2024-11-11 08:28 | W.PN.HOSP.TC ---
Addendum entered and electronically signed by Mahamed Pemberton MD 11/11/24 10:44:
Total time spent on d/c = 34 min. This included today's physical exam, progress note, review of laboratory and diagnostic data, preparation of discharge documents and prescriptions, and discussions about the pt's hospital course and discharge plan
with the patient and other medical unit secretary involved in the patient's care.
Original Note:
Today's Communication/Plan
-
OK for discharge if OK with GI
Assessment / Plan
Assessment / Plan
Gen: NAD, AAOx3.
Eyes: EOMI, PERRLA, very minimal peripheral scleral icterus.
Neck: supple.
CV: continue to remain RRR, +S1/S2, no m/r/g.
Resp: CTAB anteriorly, no rales, wheezes, or rhonchi.
Abd: remains +BS, soft, RUQ TTP (improved from yesterday), ND
Skin: No rashes.
Neuro: CN 2-12 intact, non-focal.
Psych: Normal mood and affect.
CT A/P:
1. Abnormal appearance of the gallbladder with appearance of intraluminal/sloughed membranes. Findings are suspicious for gangrenous cholecystitis in the appropriate clinical context.
2. Normal appendix.
3. Mild splenomegaly.
Abd U/S:
1. Complex debris-filled gallbladder. Underlying mass not excluded. Consider outpatient MRI or short-term repeat ultrasound for further evaluation.
2. No overt sonographic evidence for cholelithiasis or acute cholecystitis.
Abdominal pain:
-with acute transaminitis likely due to acute hepatitis A infection (HAV IgM POS) vs much less likely gangrenous cholecystitis
-Appreciate surgery, no indication for cholecystectomy at this time
-IV Zosyn stopped
-imaging above
-transaminases improving, INR trending down, now 1.34
-LR diet
Other problems:
Obesity due to excess calories
Marijuana use
Seasonal allergies
FULL/SCDs
Anticipated Discharge: Today
Subjective/Interval History
-
Date of Service: November 11, 2024
Overall feels improved from yesterday.
Objective Data
-
Labs:
Laboratory Results
11/11/24
07:17
WBC 5.6
Hgb 15.3
Hct 44.8
Plt Count 176
PT 17.1 H
INR 1.34
Sodium 137
Potassium 4.2
Chloride 106
Carbon Dioxide 28
BUN 9
Creatinine 0.8
Glucose 88
Calcium 9.0
Total Bilirubin 10.7 H
AST Pending
ALT Pending
Alkaline Phosphatase 133 H
Vital Signs:
Vital Signs
Temp Pulse Resp BP Pulse Ox
97.9 F 55 20 121/58 100
11/11/24 07:00 11/11/24 07:00 11/11/24 07:00 11/11/24 07:00 11/11/24 07:00
I&O
11/10/24 11/11/24 11/12/24
06:59 06:59 06:59
Intake Total 480 / 480 1440 / 1440 480 / 480
Balance 480 / 480 1440 / 1440 480 / 480
[2024-11-11 08:42] LABS: ALT (SGPT) 3703 U/L (0-50); AST (SGOT) 2589 U/L (17-59)
--- NOTE | 2024-11-11 10:00 | W.PN.UPDATE ---
Update Note
Progress Note Update
okay for discharge home - ok to go back to work but will understandably be fatigued
Bilirubin may not have peaked yet so expect jaundice
very important to get labs outpatient:
needs blood work twice weekly for 2 weeks then weekly until further notice - please give him slips and send results to Dr. Mendez
With the splenomegaly no contact sports for 6 weeks
All sexual contact should be immunized
regular diet
[2024-11-11 10:47] LABS: Absolute Neutrophils -Man Diff 2.9 10^3/uL (1.4-6.5); Atypical Lymphocytes 8 %; Band Neutrophils 1 % (0-3); Lymphocytes 26 % (20-51); Monocytes 14 % (2-9); Platelets Checked Yes; Segmented Neutrophils 51 % (42-75)
[2024-11-11 10:48] LABS: Anisocytosis Slight; Hypochromasia Slight; Normal RBC Morphology No; Polychromasia Slight; Stomatocytes 1+; Target Cells 1+; Total Cells Counted 100
[2024-11-11 11:00] VITALS: BP 126/65
--- NOTE | 2024-11-11 11:16 | CM ---
Patient seen bedside.
denies home care needs.
Plan: home, no needs.
--- NOTE | 2024-11-11 12:23 | W.DCSUMMARY ---
Discharge Summary
Discharge Data
Date of Admission: 11/08/24
Date of Discharge: 11/11/24
-
Pending Results: No
Hospital Course
Primary diagnoses:
Acute hepatitis A infection
Secondary diagnoses:
Obesity due to excess calories
Marijuana use
Seasonal allergies
Consultants:
Gastroenterology
General Surgery
Imaging:
CT A/P:
1. Abnormal appearance of the gallbladder with appearance of intraluminal/sloughed membranes. Findings are suspicious for gangrenous cholecystitis in the appropriate clinical context.
2. Normal appendix.
3. Mild splenomegaly.
Abd U/S:
1. Complex debris-filled gallbladder. Underlying mass not excluded. Consider outpatient MRI or short-term repeat ultrasound for further evaluation.
2. No overt sonographic evidence for cholelithiasis or acute cholecystitis.
Hospital course: 24-year-old male presenting with a chief complaint of abdominal pain as outlined in the H&P done on admission. Imaging above. The patient was seen in consultation by gastroenterology and general surgery. There is no indication
for acute cholecystectomy as per surgery. The patient's acute hepatitis A serologies were notable for hepatitis A IgM being reactive. Patient's AST on admission was 5658 and improved to 2589, ALT was 6275 and improved to 3703, INR was 1.76 and
improved to 1.34. Bilirubin was 10.7 at the time of discharge and will take a while to improve. The patient was initially on Zosyn which was stopped. Patient's abdominal pain improved. He was discharged in medically stable condition.
Discharge Plan
-
Patient Disposition: Home (Routine Discharge)
Discharge Diagnosis/Procedures: Acute hepatitis A infection
Condition: Good
Diet: As tolerated
Activity: Other activity
Driving Restrictions: As prior to admission
Bathing Restrictions: None
Blood Work: CMP and INR twice per week for 2 weeks with the first blood draw November 15, 2024
Referrals:
NONE,* [Family Provider] - in less than 1 week
Lupe Mendez, DO [Active] - (call for any fever, pain, fluid retention, or problems. Return to ER if recurrent abdominal pain.)
Additional Discharge Medication Instructions: avoid all contact sports for 6 weeks with hepatitis and some enlargement of spleen. Wear seatbelt low while driving.
Prescriptions:
Continued
fluticasone propionate 50 mcg/actuation [place],Suspension
2 spray INTRANASAL DAILY
Discharge Orders:
Discharge Patient (As Directed); Ordered 11/11/24
Ordered By: Mahamed Pemberton
Discharge Date and Time
Discharge Date/Time: 11/11/24 11:36
Print Language: INDONESIAN
== END 2024-11-11 11:36 | disposition home or self-care (01) | DRG 443 ==
LOC: 1 ACUTE 22:38
PROVIDERS: Clinical Nurse Specialist Family Health; Physician Assistant; ADMITTING PHYSICIAN Internal Medicine; ATTENDING PHYSICIAN Internal Medicine; CONSULT PHYSICIAN Internal Medicine; CONSULT PHYSICIAN Surgery; EMERGENCY PHYSICIAN Student in an Organized Health Care Education/Training Program
DX: B15.9 Hepatitis A without hepatic coma (principal); E66.09 Other obesity due to excess calories; J30.2 Other seasonal allergic rhinitis; R79.1 Abnormal coagulation profile; Z68.31 Body mass index [BMI] 31.0-31.9, adult
CPT/HCPCS: 74177; 76700; 80053; 80143; 80306; 81003; 81015; 82550; 83690; 85025; 85610; 85730; 86705; 86706; 86709; 86803; 87086; 87340; 96361; 96365; 99285; 99406; Q9967

== ENCOUNTER → 2024-11-15 11:32 | Outpatient (REF) | payer BC, SELFPAY ==
[2024-11-15 12:13] LABS: INR 0.94; PT 12.9 Sec (11.4-14.6)
[2024-11-15 13:58] LABS: AST (SGOT) 359 U/L (17-59); Albumin 4.2 g/dl (3.5-5.0); Alkaline Phosphatase 222 U/L (38-126); Blood Urea Nitrogen 15 mg/dl (9-20); Calcium 9.4 mg/dl (8.4-10.2); Carbon Dioxide 27 mmol/L (22-30); Chloride 102 mmol/L (98-107); Glucose 87 mg/dl (70-99); Sodium 142 mmol/L (135-145); Total Bilirubin 5.8 mg/dl (0.2-1.3); Total Protein 8.2 g/dl (6.3-8.2); eGFR > 60.00
[2024-11-15 15:34] LABS: ALT (SGPT) 1304 U/L (0-50)
== END ==
LOC: REG 11:32
PROVIDERS: ATTENDING PHYSICIAN Internal Medicine
DX: B15.9 Hepatitis A without hepatic coma (principal)
CPT/HCPCS: 36415; 80053; 85610

== ENCOUNTER → 2024-11-24 08:22 | Outpatient (REF) | payer BC, SELFPAY ==
[2024-11-24 10:21] LABS: INR 0.96; PT 13.3 Sec (11.4-14.6)
[2024-11-24 11:06] LABS: ALT (SGPT) 263 U/L (0-50); AST (SGOT) 83 U/L (17-59); Albumin 4.1 g/dl (3.5-5.0); Alkaline Phosphatase 113 U/L (38-126); Blood Urea Nitrogen 22 mg/dl (9-20); Carbon Dioxide 28 mmol/L (22-30); Chloride 104 mmol/L (98-107); Glucose 84 mg/dl (70-99); Potassium 4.9 mmol/L (3.5-5.1); Sodium 141 mmol/L (135-145); Total Bilirubin 2.5 mg/dl (0.2-1.3); Total Protein 7.7 g/dl (6.3-8.2); eGFR > 60.00
== END ==
LOC: REG 08:22
PROVIDERS: ATTENDING PHYSICIAN Internal Medicine; REFERRING PHYSICIAN Internal Medicine
DX: B15.9 Hepatitis A without hepatic coma (principal)
CPT/HCPCS: 36415; 80053; 85610